=== PATIENT | male | born 1970 | race Caucasian/White ===

== ENCOUNTER 2023-11-14 01:38 | Emergency (ER) | payer OTHER, SELFPAY ==
[2023-11-14 01:42] VITALS: BP 145/77
[2023-11-14 03:00] LABS: ALT (SGPT) 24 U/L (0-50); AST (SGOT) 25 U/L (17-59); Albumin 4.3 g/dl (3.5-5.0); Alkaline Phosphatase 52 U/L (38-126); Blood Urea Nitrogen 19 mg/dl (9-20); Calcium 9.6 mg/dl (8.4-10.2); Carbon Dioxide 28 mmol/L (22-30); Chloride 105 mmol/L (98-107); Glucose 116 mg/dl (70-99); Potassium 4.2 mmol/L (3.5-5.1); Sodium 143 mmol/L (135-145); Total Bilirubin 0.4 mg/dl (0.2-1.3); Total Protein 6.7 g/dl (6.3-8.2); eGFR > 60.00
[2023-11-14 03:01] LABS: % Basophils 0.5 % (0-2); % Eosinophils 1.5 % (0-6); % Immature Granulocytes 0.3 % (0-0.5); % Lymphocytes 7.1 % (20.5-51.1); % Monocytes 7.8 % (1.7-9.3); % Neutrophils 82.8 % (42.2-75.2); Absolute Basophils 0.1 10^3/uL (0-0.2); Absolute Eosinophils 0.2 10^3/uL (0-0.7); Absolute Lymphocytes 0.9 10^3/uL (1.2-3.4); Absolute Neutrophils 10.8 10^3/uL (1.4-6.5); Hematocrit 39.2 % (39.0-52.0); Mean Corp Hgb Conc. 35.7 g/dL (33.0-37.0); Mean Corpuscular Hgb 31.7 pg (27.0-31.0); Mean Corpuscular Volume 88.7 fL (80.0-94.0); Mean Platelet Volume 11.7 fL (7.4-10.4); Nucleated Red Blood Cells % 0 % (-); Platelet Count 186 10^3/uL (130-400); Red Blood Cell Count 4.42 10^6/uL (4.70-6.10); Red Cell Dist. Width 13.3 % (11.5-14.5)
[2023-11-14 03:12] LABS: Troponin I < 0.012 ng/ml
--- NOTE | 2023-11-14 04:18 | ED.GENMED ---
History of Present Illness
General
Chief Complaint: Alcohol Problem
Source: patient and family
Time Seen by Provider: 11/14/23 02:47
History of Present Illness
History of Present Illness:
This a 53-year-old male who presents with family. Patient reports body aches and pains. He states he feels like it is in his insides but also in his ribs. Reports it seems to be throughout his entire thorax. Patient did have wine and some
alcohol tonight. Does feel a bit dehydrated. Did have an episode of vomiting. Does admit that he feels a little congested. No shortness of breath. He is a smoker. Denies diarrhea. Does now feel a lot better. Did take ibuprofen at home
because in the past he was told he had arthritis and thought maybe it was related. No hemoptysis. No leg swelling. No shortness of breath.
Past History
Past History
ED Past Medical History: GERD and Other (GI bleed)
ED Past Surgical History: Urological
Social History
Tobacco: Smoker
Alcohol: Daily
Personal:
Living: with family
Phy Exam
Physical Exam
Physical Exam:
CONSTITUTIONAL Patient alert and oriented to person, place and time. Well-appearing. Vital signs reviewed.
HEAD atraumatic, normocephalic.
EYES eyelids normal to inspection, Pupils equally round and reactive to light, Extraocular muscles intact, Conjunctiva normal, Sclera normal.
NECK normal range of motion, Trachea midline, no jugular venous distention.
RESPIRATORY CHEST No respiratory distress noted, Chest expansion equal, Bilateral breath sounds clear.
CARDIOVASCULAR regular rate and rhythm, Heart sounds normal.
ABDOMEN abdomen nontender, Bowel sounds normal. No distention.
BACK normal inspection, no obvious deformities
UPPER EXTREMITY range of motion normal, Motor strength normal, no cyanosis, no edema.
LOWER EXTREMITY range of motion normal, Motor strength normal, no cyanosis, no edema.
NEURO Speech normal, No focal motor deficits, [place] coma scale 15, Memory normal, Cranial Nerves intact to screening exam.
SKIN skin warm, dry, and normal in color.
PSYCHIATRIC patient oriented to person place and time, Normal affect.
Scores
Withdrawal Assessment of Alcohol
Withdrawal Assessment Completed?: Not applicable
Course
Orders/Labs/Results
Orders:
Orders
11/14/23 02:27
EKG [Electrocardiogram (*1)] Urgent
Reason for Study: Fatigue / Weakness
11/14/23 02:28
EKG- Treatment ONCE
11/14/23 02:29
Complete Blood Count/With Diff Urgent
Comprehensive Metabolic Panel Urgent
Troponin I Urgent
11/14/23 03:54
CR Chest - 2 Views Urgent
Comment:
Reason For Exam: night sweats
11/14/23 04:28
0.9% Sodium Chloride 1000 ml [Nss] 1,000 ml IV BOLUS
11/14/23 04:45
Troponin I Urgent
Abnormal Lab Results
11/14/23
02:29
WBC 13.0 H 10^3/uL
(4.8-10.8)
RBC 4.42 L 10^6/uL
(4.70-6.10)
MCH 31.7 H pg
(27.0-31.0)
MPV 11.7 H fL
(7.4-10.4)
Absolute Neuts (auto) 10.8 H 10^3/uL
(1.4-6.5)
Absolute Lymphs (auto) 0.9 L 10^3/uL
(1.2-3.4)
Absolute Monos (auto) 1.0 H 10^3/uL
(0.1-0.6)
Neutrophils % 82.8 H %
(42.2-75.2)
Lymphocytes % 7.1 L %
(20.5-51.1)
Glucose 116 H mg/dl
(70-99)
11/14/23 02:29
11/14/23 02:29
Vital Signs
Initial and Last Documented VS:
Initial Vital Signs
Temp Pulse Resp BP Pulse Ox
98.3 F 72 20 145/77 100
11/14/23 01:42 11/14/23 01:42 11/14/23 01:42 11/14/23 01:42 11/14/23 01:42
Last Documented Vital Signs
Temp Pulse Resp BP Pulse Ox
98.3 F 62 18 117/74 99
11/14/23 01:42 11/14/23 06:09 11/14/23 06:09 11/14/23 04:47 11/14/23 06:09
MDM/Problems Addressed
MDM/Problems Addressed:
Chest pain, back pain, body aches
*Radiology
Radiology exam reviewed: all reviewed NAD by ED Provider
*Pulse Oximetry
Patient hypoxic: no
*EKG
Interpreted by ED Provider?: Yes
Interpretation: normal
Rate: normal
Rhythm: sinus
QRS Pattern: other (Incomplete right bundle branch block)
Ischemia: no ischemia
*Swamper Interpretation
Rate: normal
Interpretation: normal
Rhythm: sinus
*Critical Care Note
Total Time (30-74mins, 75-104mins- exclusive of procedures): Not Applicable
Data Reviewed
Source: patient and family
Further Testing Considered But Not Given:
Consider CT imaging but mediastinum narrow and blood pressure somewhat controlled. No clinical concern for dissection
Patient Management
Escalation/DeEscalation of care consider admission/obs:
Patient appears well. He does actually feel better. Given IV fluids. Abdomen soft and nontender. Lungs clear. Pulse ox normal. Troponin x 2 unremarkable. EKG normal. Chest x-ray normal. Question whether this could be some viral illness. I
do feel he safe for discharge. No clinical concern for aortic dissection or pulmonary embolism. Okay for outpatient follow-up
ED Attending Note
-
Portions of this chart may have been created with voice recognition software.� Occasional wrong word or��sound alike� substitutions may have occurred due to the inherent limitations of voice recognition software.
Discharge Plan
Departure
Patient Disposition: Home (Routine Discharge)
Date of Disposition: 11/14/23
Time of Disposition: 05:39
Patient with high blood pressure during this ER visit?: Yes
Discharge Problem:
Chills
Instructions: BLOOD PRESSURE
Prescriptions:
No Action
No Current Medications
0
Referrals:
PRIVATE,PHYSICIAN [Family Provider] -
Activity Restrictions/Additional Instructions:
Body aches
Return immediately for shortness of breath, fever, abdominal pain, intractable vomiting or any other concerns. Please see your doctor in the next 48 hours for follow-up and reevaluation.
Interventions
Interventions:
*Risk Screen - Suicide Last Done: 11/14/23 01:42
*General Assessment Last Done: 11/14/23 01:42
*Neglect/Abuse Screening Last Done: 11/14/23 01:42
ED- Fall Risk Assessment Last Done: 11/14/23 01:42
*ED COVID-19 Vaccine History Last Done: 11/14/23 01:42
*Nursing Disposition Last Done: 11/14/23 06:09
[facility] Assessment Last Done: 11/14/23 03:05
ED- Neurological Assessment Last Done: 11/14/23 03:05
ED-Psychological Assessment Last Done: 11/14/23 03:05
Discharge Date and Time
Discharge Date/Time: 11/14/23 06:10
Print Language: INDONESIAN
[2023-11-14] MEDS: NSS 1000 IV (04:46)
[2023-11-14 04:47] VITALS: BP 117/74
[2023-11-14 05:23] LABS: Troponin I < 0.012 ng/ml
== END 2023-11-14 06:10 | disposition home or self-care (01) ==
LOC: EMR 01:38
PROVIDERS: EMERGENCY PHYSICIAN Emergency Medicine
DX: R68.83 Chills (without fever) (principal); R11.10 Vomiting, unspecified; R07.89 Other chest pain; M79.10 Myalgia, unspecified site; M54.6 Pain in thoracic spine; R09.89 Other specified symptoms and signs involving the circulatory and respiratory systems; R03.0 Elevated blood-pressure reading, without diagnosis of hypertension; I45.10 Unspecified right bundle-branch block; K21.9 Gastro-esophageal reflux disease without esophagitis; M19.90 Unspecified osteoarthritis, unspecified site; F17.200 Nicotine dependence, unspecified, uncomplicated; Z91.030 Bee allergy status
CPT/HCPCS: 99284; 96360; 71046; 80053; 84484; 85025; 93005

== ENCOUNTER 2024-03-10 06:26 | Day surgery (SDC) | payer OTHER, SELFPAY | END 2024-03-10 09:19 | disposition home or self-care (01) | LOC: GI 06:26 | PROVIDERS: ATTENDING PHYSICIAN Internal Medicine Gastroenterology | DX: Z12.11 Encounter for screening for malignant neoplasm of colon (principal); K57.30 Diverticulosis of large intestine without perforation or abscess without bleeding; K64.8 Other hemorrhoids; D17.5 Benign lipomatous neoplasm of intra-abdominal organs; K55.20 Angiodysplasia of colon without hemorrhage; K62.89 Other specified diseases of anus and rectum; Z86.0101 Personal history of adenomatous and serrated colon polyps | CPT/HCPCS: 45380; 88305; 88312; 88341; 88342 ==